=== PATIENT | female | born 1980 | race Caucasian/White ===

== ENCOUNTER 2016-10-14 15:37 | Emergency (ER) | payer OTHER ==
[2016-10-14 16:08] VITALS: BP 126/71
--- NOTE | 2016-10-14 16:39 | UC ---
UC General HPI - HPI Summary HPI Summary: 36 yo F c/o generalized fatigue, hot flashes, dizziness for 2-3 days. Pt is late for her menses, concerned she could be . Is allergic to control pills. No chest pain or SOB. - History of Current Complaint Chief Complaint: UCGeneralIllness Stated Complaint: NAUSEA LIGHT HEADED Time Seen by Provider: 10/14/16 15:54 Hx Obtained From: Patient Onset/Duration: Gradual Onset, Lasting Days, Still Present Timing: Constant Onset Severity: Moderate Current Severity: Moderate Associated Signs & Symptoms: Positive: Dizziness, Nausea, Other - Allergy/Home Medications Allergies/Adverse Reactions: Allergies Allergy/AdvReac Type Severity Reaction Status Date / Time Hydrocodone [From Vicodin] AdvReac Vomiting Verified 10/14/16 16:07 control pills Allergy pains to Uncoded 10/14/16 16:07 fingertips- feels like having a heart attack Home Medications: Home Medications Acetaminophen [Acetaminophen Extra Stren] 1,000 mg PO Q6H PRN 10/14/16 [History Confirmed 10/14/16] PMH/Surg Hx/FS Hx/Imm Hx Previously Healthy: Yes - Surgical History Surgical History: Yes Surgery Procedure, Year, and Place: cervical biopsy - Family History Known Family History: Positive: Hypertension - Social History 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 Lives: With Family Alcohol Use: Rare Substance Use Type: None Smoking Status (MU): Heavy Every Day Tobacco Smoker Type: Cigarettes Amount Used/How Often: 1 PPD Length of Time of Smoking/Using Tobacco: 19 YRS Have You Smoked in the Last Year: Yes Review of Systems Constitutional: Negative Skin: Negative Eyes: Negative ENT: Negative Respiratory: Negative Cardiovascular: Negative Gastrointestinal: Other - nausea Genitourinary: Negative Motor: Negative Neurovascular: Negative Musculoskeletal: Negative Neurological: Other - dizzy Psychological: Negative All Other Systems Reviewed And Are Negative: Yes Physical Exam Triage Information Reviewed: Yes Appearance: No Pain Distress, Well-Nourished, Ill-Appearing Vital Signs: Initial Vital Signs Temp 98.6 F 10/14/16 15:51 Pulse 84 10/14/16 15:51 Resp 16 10/14/16 15:51 BP 126/71 10/14/16 15:51 Pulse Ox 99 10/14/16 15:51 Vital Signs Reviewed: Yes Eyes: Positive: Conjunctiva Clear ENT: Positive: Normal ENT inspection, Hearing grossly normal, Muffled/hoarse voice Neck: Positive: Supple, Nontender, No Lymphadenopathy, Other: - thyroid non palpable Respiratory: Positive: Lungs clear, Normal breath sounds, No respiratory distress Cardiovascular: Positive: RRR, No Murmur, Pulses Normal, Brisk Capillary Refill Abdomen Description: Positive: Nontender, No Organomegaly, Soft. Negative: Distended, Guarding, McBurney's Point Tenderness, Peritoneal Signs Bowel Sounds: Positive: Present Musculoskeletal: Positive: Strength Intact, ROM Intact Neurological: Positive: Alert, Muscle Tone Normal Psychological Exam: Normal Skin Exam: Normal Course/Dx - Course Course Of Treatment: EKG SR, nl avivct, normal axis, no acute changes, nl QTc. UA neg. HCG neg - Differential Dx - Multi-Symptom Differential Diagnoses: Cardiac Ischemia, Urinary Tract Infection, Other - , hypothyroidism, hormone imbalance Provider Diagnoses: generalized fatigue. amenorrhea. vertigo. elevated BP without dx of HTN Discharge - Discharge Plan Condition: Stable Disposition: HOME Patient Education Materials: Fatigue (ED) Referrals: Tabatha Rowan MD [Primary Care Provider] - As Soon As Possible Additional Instructions: Dr. Orourke suggests that you may want Dr. Rowan to evaluate your condition further with some blood work, especially thyroid and possibly hormone levels. Your EKG was normal today and your urinalysis and test were normal. If you have new or worsening symptoms, you should go to the emergency room.
== END 2016-10-14 16:49 | disposition home or self-care (01) ==
LOC: UCCORT 15:37
DX: R53.83 Other fatigue (principal); N91.2 Amenorrhea, unspecified; R42 Dizziness and giddiness; R03.0 Elevated blood-pressure reading, without diagnosis of hypertension; F17.210 Nicotine dependence, cigarettes, uncomplicated
CPT/HCPCS: 81003; 84702; 93005; 99211; G0463

== ENCOUNTER 2017-02-22 08:56 | Emergency (ER) | payer OTHER ==
[2017-02-22 09:12] VITALS: BP 125/49
--- NOTE | 2017-02-22 09:38 | UC ---
Skin Complaint HPI - HPI Summary HPI Summary: bug bites right arm 3 days ago . went to ED was given doxy x 21 days for possible Lyme disease pt. took one doxy and started having problem with his throat with tightness of the throat, no fever, no chills, no sob , no rash - History of Current Complaint Chief Complaint: UCRespiratory Time Seen by Provider: 02/22/17 09:26 Stated Complaint: POSSIBLE ALLERGIC REACTION Hx Obtained From: Patient Hx Last Menstrual Period: 02/01/17 ?: No Onset/Duration: Sudden Onset, Lasting Days - 1, Still Present Timing: Constant Onset Severity: Moderate Current Severity: Moderate Location: Discrete - right arm Character: Swelling, Redness, Painful Aggravating Factor(s): Nothing Alleviating Factor(s): Nothing Associated Signs & Symptoms: Positive: Throat Tightening, Tenderness - Allergy/Home Medications Allergies/Adverse Reactions: Allergies Allergy/AdvReac Type Severity Reaction Status Date / Time Hydrocodone [From Vicodin] AdvReac Vomiting Verified 02/22/17 09:12 ? Doxycycline Allergy Swelling Uncoded 02/22/17 09:13 Of Face,Lips,& Throat control pills Allergy pains to Uncoded 02/22/17 09:12 fingertips- feels like having a heart attack Home Medications: Home Medications Doxycycline Hyclate 50 mg Cap [Doxycycline Hyclate] 100 mg PO BID 02/22/17 [ History Confirmed 02/22/17] Ibuprofen TAB* [Motrin TAB* 800 MG] 800 mg PO ONCE PRN 02/22/17 [History Confirmed 02/22/17] Review of Systems Constitutional: Negative Skin: Negative ENT: Negative Is Patient Immunocompromised?: No All Other Systems Reviewed And Are Negative: Yes PMH/Surg Hx/FS Hx/Imm Hx Previously Healthy: Yes - Surgical History Surgical History: Yes Surgery Procedure, Year, and Place: cervical biopsy - Family History Known Family History: Positive: Hypertension - Social History Alcohol Use: Rare Substance Use Type: None Smoking Status (MU): Heavy Every Day Tobacco Smoker Type: Cigarettes Amount Used/How Often: 1 PPD Length of Time of Smoking/Using Tobacco: 19 YRS Have You Smoked in the Last Year: Yes Physical Exam Triage Information Reviewed: Yes Appearance: Well-Appearing, No Pain Distress, Well-Nourished Vital Signs: Initial Vital Signs Temp 98.7 F 02/22/17 09:02 Pulse 99 02/22/17 09:02 Resp 20 02/22/17 09:02 BP 125/49 02/22/17 09:02 Pulse Ox 100 02/22/17 09:02 Eye Exam: Normal Eyes: Positive: Conjunctiva Clear ENT: Positive: Normal ENT inspection, Hearing grossly normal, Pharynx normal Neck: Positive: Supple, Nontender, No Lymphadenopathy Respiratory: Positive: Chest non-tender, Lungs clear, Normal breath sounds, No respiratory distress Cardiovascular: Positive: RRR, No Murmur, Pulses Normal Abdominal Exam: Normal Abdomen Description: Positive: Nontender, Soft Bowel Sounds: Positive: Present Musculoskeletal Exam: Normal Neurological Exam: Normal Skin: Positive: Other - right arm : mild erythema , mild tenderness Course/Dx - Diagnoses Provider Diagnoses: allergic reaction to meds. cellulitis right arm Discharge - Discharge Plan Condition: Stable Disposition: HOME Prescriptions: Cephalexin CAP* [Keflex CAP*] 500 mg PO TID #30 cap Patient Education Materials: Cellulitis (ED), Antibiotic Medication Allergy (ED ) Referrals: Tabatha Rowan MD [Primary Care Provider] - If Needed Additional Instructions: stop taking Doxy may start Keflex if the redness in your arm is getting worse in one day
== END 2017-02-22 09:43 | disposition home or self-care (01) ==
LOC: UCCORT 08:56
DX: S40.861A Insect bite (nonvenomous) of right upper arm, initial encounter (principal); W57.XXXA Bitten or stung by nonvenomous insect and other nonvenomous arthropods, initial encounter; Y93.9 Activity, unspecified; Z88.6 Allergy status to analgesic agent; Z88.8 Allergy status to other drugs, medicaments and biological substances
CPT/HCPCS: 99212; G0463

== ENCOUNTER 2017-12-17 17:39 | Emergency (ER) | payer OTHER ==
[2017-12-17 18:10] VITALS: BP 140/82
--- NOTE | 2017-12-17 18:51 | UC ---
Headache HPI - HPI Summary HPI Summary: Patient is 37 year old female, with significant past medical history of migraines which usually responds to NSAIDs and Tylenol present today with headache and nausea since yesterday which has not responded to her usual medications .she reports that she gets this kind of headache every 3-4 months and feels it is a similar one. Does have nausea but has not had any episode of throwing up. In the past when the headaches did not respond she had been to the ER and responded well to Toradol and sometimes to Percocet. Denies it being the worst headache of her life. Denies any fever or chills or any associated symptoms. Denies cough chest pain or shortness of breath . Denies any abdominal pain , nausea or vomiting , diarrhea or constipation. Has tried over the counter medication without much relief. She also has an area of redness on her right elbow thinks it is progressing, noticed it after insect bite yesterday, no drainage - History Of Current Complaint Chief Complaint: UCHeadache Stated Complaint: HEADACHE Time Seen by Provider: 12/17/17 18:42 Hx Obtained From: Patient Hx Last Menstrual Period: 12/12/17 ?: No Onset Of Symptoms: Sudden Pain Intensity: 10 Pain Scale Used: 0-10 Numeric - Allergies/Home Medications Allergies/Adverse Reactions: Allergies Allergy/AdvReac Type Severity Reaction Status Date / Time MS Hydrocodone [From Vicodin] AdvReac Vomiting Verified 12/17/17 18:10 ? Doxycycline Allergy Swelling Uncoded 12/17/17 18:10 Of Face,Lips,& Throat control pills Allergy pains to Uncoded 12/17/17 18:10 fingertips- feels like having a heart attack PMH/Surg Hx/FS Hx/Imm Hx Previously Healthy: Yes Other Endocrine History: negative Other Cardiovascular History: negative Other Respiratory History: negative Other GI/ History: negative Neurological History: Migraine - every 3-4 months Other Neurological History: negative Other Psychological History: negative Other Cancer History: negative - Surgical History Surgical History: None Surgery Procedure, Year, and Place: cervical biopsy - Family History Known Family History: Positive: Hypertension - Social History Alcohol Use: Rare Substance Use Type: None Smoking Status (MU): Heavy Every Day Tobacco Smoker Type: Cigarettes Amount Used/How Often: 1 PPD Length of Time of Smoking/Using Tobacco: since age 16 Have You Smoked in the Last Year: Yes Review of Systems Constitutional: Negative Skin: Negative Eyes: Negative ENT: Negative Respiratory: Negative Cardiovascular: Negative Gastrointestinal: Negative, Nausea - Without any episode of vomiting Genitourinary: Negative Motor: Negative Neurovascular: Negative Musculoskeletal: Negative Neurological: Headache Is Patient Immunocompromised?: No All Other Systems Reviewed And Are Negative: Yes Physical Exam - Summary Physical Exam Summary: Physical Exam: Const: Appears well. No signs of apparent distress present. Alert and oriented x 3. Musculo: Walks with a normal gait. Head/Face: Atraumatic, normocephalic on inspection. Eyes: EOMI and PERRLA in both eyes. Conjunctivae clear. No discharge noted ENT: Hearing normal, TM normal appearing bilaterally . Respiratory: Respirations are unlabored. Lungs clear to auscultation bilaterally, no wheezing , rhonchi or rales noted . CVS: Regular rate and Rhythm, S1S2 normal , no murmurs identified. Extremities: Peripheral circulation is grossly normal. Pulses 2+ Abdomen : Soft non tender , nondistended , Bowel sounds present . No guarding , rebound tenderness or rigidity noted. Skin: No lesions or rash located on the upper extremities or on the lower extremities. There is a small area of erythema on her right elbow, no fluctuation noted. There is no discharge Neuro: Cranial nerves II to XII intact, motor and sensory intact. DTR Intact bilaterally. Mood is normal. Affect is normal. Triage Information Reviewed: Yes Appearance: Pain Distress Vital Signs: Initial Vital Signs Temp 97.5 F 12/17/17 18:00 Pulse 84 12/17/17 18:00 Resp 16 12/17/17 18:00 BP 140/82 12/17/17 18:00 Pulse Ox 100 12/17/17 18:00 Vital Signs Reviewed: Yes Headache Course/Dx - Course Course Of Treatment: During the visit today, we discussed the findings and further plan. She was given intramuscular injection of 30 mg Toradol with relief in her symptoms. I will prescribe Imitrex to the pharmacy . She will follow up with her primary doctor for the management of her migraine headaches. I also prescribed Keflex for cellulitis of her right elbow. Patient expressed understanding . - Differential Dx/Diagnosis Provider Diagnoses: migraine. right elbow cellulitis Discharge - Sign-Out/Discharge Documenting (check all that apply): Patient Departure - Discharge Plan Condition: Stable Disposition: HOME Prescriptions: Cephalexin CAP* [Keflex CAP*] 500 mg PO TID 10 Days #30 cap SUMAtriptan TAB* [Imitrex TAB*] 50 mg PO SEE INSTRUCTIONS #9 tab Patient Education Materials: Cellulitis (ED), Migraine Headache (ED) Referrals: Tabatha Rowan MD [Primary Care Provider] - 2 Days Additional Instructions: Please start taking the medication as prescribed to the pharmacy . Follow up with your primary care doctor in 2 days. Patients blood pressure slightly high in Urgent care today , plan follow up with PCP for better control Return to Urgent care / ER if symptoms get worse. - Billing Disposition and Condition Condition: STABLE Disposition: Home
[2017-12-17] MEDS ORDERED: Ketorolac INJ* 30 MG/ML 1 ML VIAL IM ONE (18:56)
== END 2017-12-17 19:39 | disposition home or self-care (01) ==
LOC: UCCORT 17:39
DX: L03.113 Cellulitis of right upper limb (principal); G43.909 Migraine, unspecified, not intractable, without status migrainosus; Z88.6 Allergy status to analgesic agent; F17.210 Nicotine dependence, cigarettes, uncomplicated
CPT/HCPCS: 96372; 99212; G0463; J1885

== ENCOUNTER 2019-02-14 20:34 | Emergency (ER) | payer OTHER ==
[2019-02-14 20:47] VITALS: BP 136/54
--- NOTE | 2019-02-14 20:50 | UC ---
Ear Complaint HPI - HPI Summary HPI Summary: 38-year-old female with intermittent right earache today. She denies any cold symptoms - History of Current Complaint Chief Complaint: UCEar Stated Complaint: R EAR PAIN Time Seen by Provider: 02/14/19 20:47 Hx Obtained From: Patient Hx Last Menstrual Period: 12/12/17 ?: No Onset/Duration: Gradual Onset Severity Initially: Mild Severity Currently: Mild Pain Intensity: 0 Aggravating Factors: Nothing Alleviating Factors: Nothing - Allergies/Home Medications Allergies/Adverse Reactions: Allergies Allergy/AdvReac Type Severity Reaction Status Date / Time doxycycline Allergy Swelling Verified 02/14/19 20:51 Of Face,Lips,& Throat acetaminophen [From Vicodin] AdvReac Vomiting Verified 02/14/19 20:51 hydrocodone [From Vicodin] AdvReac Vomiting Verified 02/14/19 20:51 control pills Allergy pains to Uncoded 02/14/19 20:51 fingertips- feels like having a heart attack PMH/Surg Hx/FS Hx/Imm Hx Previously Healthy: Yes Neurological History: Migraine Cancer History: Cervical Cancer - Surgical History Surgical History: None Surgery Procedure, Year, and Place: cervical biopsy - Family History Known Family History: Positive: Hypertension - Social History Alcohol Use: Rare Substance Use Type: None Smoking Status (MU): Heavy Every Day Tobacco Smoker Type: Cigarettes Amount Used/How Often: 1 PPD Length of Time of Smoking/Using Tobacco: since age 16 Have You Smoked in the Last Year: Yes Review of Systems All Other Systems Reviewed And Are Negative: Yes Skin: Positive: Other - Patient has a small lump in front of her right ear for which she is concerned. ENT: Positive: Ear Ache - Right earache intermittently. Is Patient Immunocompromised?: No Physical Exam Triage Information Reviewed: Yes Appearance: Well-Appearing, No Pain Distress, Well-Nourished Vital Signs: Initial Vital Signs Temp 99.2 F 02/14/19 20:44 Pulse 84 02/14/19 20:44 Resp 18 02/14/19 20:44 BP 136/54 02/14/19 20:44 Pulse Ox 100 02/14/19 20:44 Vital Signs Reviewed: Yes Eyes: Positive: Conjunctiva Clear ENT: Positive: Hearing grossly normal, Pharynx normal, TMs normal, Uvula midline Neck: Positive: Supple, Nontender, No Lymphadenopathy Respiratory: Positive: Lungs clear, Normal breath sounds, No respiratory distress, No accessory muscle use Cardiovascular: Positive: RRR, No Murmur, Pulses Normal, Brisk Capillary Refill Musculoskeletal Exam: Normal Neurological Exam: Normal Psychological Exam: Normal Skin: Positive: Other - The right preauricular lymph node is mildly swollen and nontender. Ear Complaint Course/Dx - Course Course Of Treatment: Patient is comfortable here. I was able to remove a small amount of cerumen from the right ear canal using a curette. - Differential Dx/Diagnosis Provider Diagnosis: Otalgia, right ear Discharge ED - Sign-Out/Discharge Documenting (check all that apply): Patient Departure All imaging exams completed and their final reports reviewed: No Studies - Discharge Plan Condition: Good Disposition: HOME Patient Education Materials: Earache (ED) Referrals: No Primary Care Phys,NOPCP [Primary Care Provider] - [facility] [Outside] Additional Instructions: May take ibuprofen every 8 hours for pain. Follow-up with your primary care provider or the [facility] if no improvement in 3 or 4 days - Billing Disposition and Condition Condition: GOOD Disposition: Home - Attestation Statements Provider Attestation: Per institutional requirements, I have reviewed the chart, however, I was not consulted specifically or made aware of this patient by the midlevel provider. I did not personally evaluate, interact with , or disposition this patient.
== END 2019-02-14 21:01 | disposition home or self-care (01) ==
LOC: UCCORT 20:34
DX: H92.01 Otalgia, right ear (principal); Z88.6 Allergy status to analgesic agent; Z88.8 Allergy status to other drugs, medicaments and biological substances; Z88.1 Allergy status to other antibiotic agents; Z88.5 Allergy status to narcotic agent; Z85.41 Personal history of malignant neoplasm of cervix uteri; F17.210 Nicotine dependence, cigarettes, uncomplicated
CPT/HCPCS: 99211; G0463